=== PATIENT | female | born 1965 | race Caucasian/White ===

== ENCOUNTER 2019-10-28 13:13 | Inpatient (IN) | payer BC ==
[~2019-10-28] VITALS: Ht 167.6 cm; Wt 77.0 kg
[2019-10-28 13:26] VITALS: Ht 167.6 cm; Wt 77.0 kg
--- NOTE | 2019-10-28 14:50 | NUR ---
DR RODRIGUEZ BEDSIDE MSE
--- NOTE | 2019-10-28 15:14 | NUR ---
MEDICATED PER MD ORDERS
[2019-10-28 15:23] LABS: PLATELET COUNT 187 x10^3mcL (130-400); RED CELL DISTRIBUTION WIDTH 12.9 % (11.5-14.5)
[2019-10-28 15:33] LABS: CALCIUM 9.2 mg/dL (8.5-10.1); CARBON DIOXIDE 25.9 mmol/L (21-32); CHLORIDE SERUM 101 mmol/L (98-107); CREATININE SERUM 0.9 mg/dL (0.6-1.0); GFR1 > 60 mL/min; GLUCOSE SERUM 109 mg/dL (74-106); POTASSIUM SERUM 3.9 mmol/L (3.5-5.1); SODIUM SERUM 137 mmol/L (136-145)
[2019-10-28 15:38] LABS: ALBUMIN 3.8 g/dL (3.4-5.0); ALKALINE PHOSPHATASE 173 U/L (46-116); ALT/SGPT 161 U/L (14-59); AST/SGOT 75 U/L (15-37); BILIRUBIN TOTAL 0.7 mg/dL (0.20-1.00); LIPASE 114 IU/L (73-393); TOTAL PROTEIN, SERUM 7.6 g/dL (6.4-8.2)
[2019-10-28 16:00] LABS: BAND NEUTROPHIL 1 % (0-10)
[2019-10-28 16:01] LABS: MONOCYTE 7 % (0-7); SEGMENTED NEUTROPHILS 82 % (37-75)
[2019-10-28 16:05] LABS: rbc morphology (normal/abnorm) NORMAL (NORMAL)
--- NOTE | 2019-10-28 16:05 | NUR ---
MEDICATED PER MD ORDERS- SEE EMR
[2019-10-28 16:35] LABS: UA SPECIFIC GRAVITY >=1.030 (1.005-1.035); microscopic required? YES; urine erythrocyte NEGATIVE (NEGATIVE)
--- NOTE | 2019-10-28 17:30 | NUR ---
PATIENT PROVIDES 8 OZ OF APPLE JUICE PER PO CHALLENGE ORDERS. PT TOLERATED WELL BUT STILL C/O NAUSEA. WILL CONTINUE TO MONITOR.
--- NOTE | 2019-10-28 17:31 | NUR ---
PATIENT TAKEN TO CT- WILL CONTINUE TO MONITOR UPON RETURN.
--- NOTE | 2019-10-28 17:59 | NUR ---
PATIENT BACK FROM CT. PT PLACED BACK ON IV BOLUS PER MD ORDERS.
--- NOTE | 2019-10-28 19:00 | NUR ---
REPORT RECEIVED FROM PAT DAVIS
--- NOTE | 2019-10-28 19:17 | NUR ---
REPORT PROVIDED TO RYAN GAUTHIER FOR CONTINUED CARE OF PATIENT
[2019-10-28 20:13] LABS: CHOLESTEROL/HDL RATIO 4.5
[2019-10-28 20:20] LABS: T3 TOTAL 0.6 ng/mL
[2019-10-28 20:22] LABS: FREE T4 1.07 ng/dL (0.76-1.46); FREE THYROXINE INDEX 3.4 ug/dL (1.4-4.5); T4(THYROXINE) 9.6 ug/dL (4.7-13.3)
--- NOTE | 2019-10-28 21:20 | NUR ---
PT. LAYING IN BED, AAOX54, NO ACUTE DISTRESS NOTED, CALL LIGHT WITHIN REACH, REPOSITIONED FOR COMFORT, 0/10 PAIN, WILL CONTINUE TO MONITOR, M/S HOLD
--- NOTE | 2019-10-28 21:21 | NUR ---
PT. SITTING UP IN BED, AAOX4, NO ACUTE DISTRESS NOTED, REPOSITIONED FOR COMFORT, CALL [facility], 02/06 PAIN HEADACHE, ACHEY, OFFERED PRN TYENOL, PT AGREED, WILL MEDICATED PER ORDER, SAFETY PRECAUTIONS IN PLACE, PENDING BED ASSIGNMENT,
--- NOTE | 2019-10-28 21:39 | NUR ---
PT. AMBULATED TO THE RESTROOM WITH STEADY GAIT, DENIES DIZZINESS
--- NOTE | 2019-10-28 21:39 | NUR ---
MEDIATD PER PRN MD ORDER, PT. TOLERATED WELL, SEE EMAR
--- NOTE | 2019-10-28 23:07 | NUR ---
STARTED FLUIDS NC @ 100ML/HR PER ORDER, PT. STATED SHE WAS FEELING NAUSEATED, ZOFRAN 4 MG IVP ADMINISTERED PER PRN ORDER, PT. TOLERATED WELL, SEE EAMR
--- NOTE | 2019-10-28 23:38 | NUR ---
REPORTED GIVENT TO AJAY DAVIS
--- NOTE | 2019-10-29 00:44 | NUR ---
SEEN PATIENT AT THIS TIME,IV ALARMING LAC,FLUSHING IT WITH RESISTANCE.JACKIE MADE AWARE IT IS NOT GOOD.
[2019-10-29 00:47] VITALS: BP 106/67
--- NOTE | 2019-10-29 00:49 | NUR ---
IV REMOVED.SAYS IT IS BURNING A LOT,JACKIE WILL PUT A NEW ONE.
--- NOTE | 2019-10-29 01:01 | NUR ---
RECEIVED PT FROM ER, PT ADMIT GASTROPARESIS, INTRACTABLE VOMITTING, NAUSEA PT IS A/O X4, VERBAL RESPONSIVE. LUNG SOUND CLEAR BILATERAL, NO COUGH, NO SOB. PT DENY ANY CHEST PAIN OR DISCOMFORT. BOWEL SOUND PRESENT ALL 4 QUADRANTS, DENY ANY N/V AT THIS MOMENT, PEDAL PULSE PRESENT BOTH FEET, NO EDEMA, IV AT LEFT AC, NO LEAKING, NO INFILTRATION. ALL ADLS ASSIST ALL NEED MET, CALL LIGHT IN REACH, WILL CONTINUE TO MONITOR.
--- NOTE | 2019-10-29 04:55 | NUR ---
PATIENT WAS SOUND ASLEEP SINCE I GIVE RESTRORIL,WAS CALLING NOW,SAYS SHE WOKE UP WITH DIARRHEA,UP IN RESTROOM,CLEANED UP SELF.AMBULATORY,STEADY ON HER FEET.DR IS AWARE THAT SHE HAS DIARRHEA FROM HOME,BUT THIS IS THE FIRST TIME SINCE ADMIT.DR MONTGOMERY MADE AWARE.IVF INFUSING WELL,RESUMED AFTER CLEANING HERSELF.
--- NOTE | 2019-10-29 05:06 | NUR ---
I AND O MEASURED.IVF INFUSING.WILL ENDORSE TO NEXT SHIFT.
[2019-10-29 05:33] VITALS: BP 112/58
--- NOTE | 2019-10-29 07:05 | NUR ---
RECEIVED PT FROM DUAL HOSE CEMENTER NURSE. PT RESTING IN BED, RESP E/U ON RA. PT DENIES NAUSEA OR ABD PAIN AT THIS TIME. ULTRASOUND COMPLETED AT BEDSIDE AT THIS TIME. IV TO RFA W/ NO SIGNS OF INFILTRATION, IVF INFUSING WELL. BED IN LOWEST POSITION AND CALL LIGHT WITHIN REACH. WILL CONTINUE TO MONITOR.
[2019-10-29 08:27] LABS: BASOPHIL % 0.5 % (0-2); PLATELET COUNT 177 x10^3mcL (130-400); RED CELL DISTRIBUTION WIDTH 13.5 % (11.5-14.5)
[2019-10-29 08:43] VITALS: BP 136/85
[2019-10-29 09:30] LABS: CALCIUM 8.4 mg/dL (8.5-10.1); CARBON DIOXIDE 26.5 mmol/L (21-32); CHLORIDE SERUM 106 mmol/L (98-107); CREATININE SERUM 0.8 mg/dL (0.6-1.0); GFR1 > 60 mL/min; GLUCOSE SERUM 93 mg/dL (74-106); MAGNESIUM 1.9 mg/dL (1.8-2.4); PHOSPHOROUS 2.7 mg/dL (2.5-4.9); POTASSIUM SERUM 3.7 mmol/L (3.5-5.1); SODIUM SERUM 140 mmol/L (136-145)
--- NOTE | 2019-10-29 12:21 | NUR ---
PT RESTING IN BED, AOX4, RESP E/U ON RA. C/O OF MILD HEADACHE BUT TOLERABLE. DENIES ABD PAIN OR NAUSEA. BED IN LOWEST POSITION AND CALL LIGHT WITHIN REACH. WILL CONTINUE TO MONITOR.
[2019-10-29 12:28] VITALS: BP 138/71
[2019-10-29 16:44] VITALS: BP 116/73
--- NOTE | 2019-10-29 18:50 | NUR ---
PT RESTING IN BED, AOX4, RESP E/U ON RA. DENIES HEADACHE, NAUSEA OR ABD PAIN AT THIS TIME. NO ACUTE DISTRESS NOTED. IV TO RFA W/ NO SIGNS OF INFITLRATION, IVF INFUSING WELL. BED IN LOWEST POSITION AND CALL LIGHT WITHIN REACH. WILL ENDORSE TO ONCOMING NURSE.
--- NOTE | 2019-10-29 19:45 | NUR ---
SHIFT REASSESSMENT DONE.PATIENT ALERT AND ORIENTED.MAKE NEEDS KNOWN TO STAFF.REPORT OF LOOSE STOOL,ON FLAGYL.BREATHING EASY.NS AT 100 CC/ HOUR.MEDSURG PATIENT.SKIN INTACT.SCD IN PLACE.CALL LIGHT IN REACH.
[2019-10-29 20:49] VITALS: BP 109/70
--- NOTE | 2019-10-29 21:26 | NUR ---
WAS ASKING FOR IMMODIUM,DR MONTGOMERY SAYS NO.FLAGYL WAS ORDERED.IVF NS AT 100 CC/HOUR.
--- NOTE | 2019-10-29 23:07 | NUR ---
PATIENT GIVEN SLEEPING PILL.ALSO ATB SCHEDULED FOR MIDNIGHT.QUIET ENVIRONMENT MAINTAINED.
--- NOTE | 2019-10-30 04:18 | NUR ---
SLEEPING COFORTBLY.IVF INFUSING.CALL LIGHT IN REACH.
--- NOTE | 2019-10-30 04:59 | NUR ---
PATIENT SOUND ASLEEP.
[2019-10-30 05:14] VITALS: BP 115/67
--- NOTE | 2019-10-30 06:13 | NUR ---
I AND O MEASURED,IVF NS AT 100 CC/ HOUR.WILL ENDORSE TO NEXT SHIFT.
[2019-10-30 06:33] LABS: BASOPHIL % 0.7 % (0-2); PLATELET COUNT 181 x10^3mcL (130-400); RED CELL DISTRIBUTION WIDTH 13.5 % (11.5-14.5)
[2019-10-30 07:22] LABS: CALCIUM 8.5 mg/dL (8.5-10.1); CHLORIDE SERUM 108 mmol/L (98-107); CREATININE SERUM 0.7 mg/dL (0.6-1.0); GFR1 > 60 mL/min; GLUCOSE SERUM 97 mg/dL (74-106); MAGNESIUM 1.8 mg/dL (1.8-2.4); PHOSPHOROUS 3.5 mg/dL (2.5-4.9); POTASSIUM SERUM 3.6 mmol/L (3.5-5.1); SODIUM SERUM 142 mmol/L (136-145)
--- NOTE | 2019-10-30 07:30 | NUR ---
PT ENDORSE TO ME THIS MORNING, LAYING IN BED RESTING, AA/O X4, BREATHING EVEN AND UNLABORED ON RA, NO ACUTE RESP DISTRESS OR SOB NOTED. MEDSURG, DENIES ANY CP OR PRESSURE. DENIES ANY ABD PAIN OR DISCOMFORT AT THIS TIME, LAST LOOSE STOOL 10/29. VOIDING FREELY. AMB. IV OTHE RFA INTACT AND PATENT INFUSING AT 10 ML/HR. NO REDNESS OR SWELLING NOTED. CALL LIGHT IN REACH. BED IN LOW POSITION. WILL CONTINUE TO MONITOR.
[2019-10-30 09:00] VITALS: BP 119/77
--- NOTE | 2019-10-30 09:32 | NUR ---
PT REFUSE TO HAVE COLACE, STATED HAS HAD X1 LOOSE STOOL THIS AM.
[2019-10-30] MEDS ORDERED: ZOF4 PO ×2 (10:34→14:19)
[2019-10-30 12:56] VITALS: BP 123/79
--- NOTE | 2019-10-30 14:24 | NUR ---
EXPLAINED DISCHARGE INSTRUCTIONS, NEW AND CONTINUED MEDS AND FOLLOW UP APT PT HAS ON 11/12 AT 0945 WITH PRIMARY DOC. PT AGREED AND SIGNED ALL DOCUMENTS. REMOVED IV TOTHE RFA CATHETER TIP INTACT. WAITING FOR HER RIDE. WILL CONTINUE TO MONITOR.
--- NOTE | 2019-10-30 15:00 | NUR ---
KATELYN WALL WALKED PT DOWN TO FRONT OF HOSPITAL, PT IS CLEAR ON ALL INSTRUCTIONS AND FOLLOW UP APPT. PT IS BREATHING EVEN AND UNLABORED ON RA NO ACUTE RESP DISTRESS OR SOB NOTED. PT DISCHARGED HOME, WILL BE DRIVING HER HOME.
== END 2019-10-30 15:11 | disposition home or self-care (01) | DRG 73 ==
LOC: ED 13:13 → MU 19:21
PROVIDERS: Emergency Medicine; ADMIT General Practice
DX: E11.43 Type 2 diabetes mellitus with diabetic autonomic (poly)neuropathy (principal); N17.0 Acute kidney failure with tubular necrosis; E03.9 Hypothyroidism, unspecified; F41.9 Anxiety disorder, unspecified; K31.84 Gastroparesis; E86.0 Dehydration; K21.9 Gastro-esophageal reflux disease without esophagitis; K52.9 Noninfective gastroenteritis and colitis, unspecified; Z88.8 Allergy status to other drugs, medicaments and biological substances; Z90.49 Acquired absence of other specified parts of digestive tract; Z90.710 Acquired absence of both cervix and uterus; Z79.84 Long term (current) use of oral hypoglycemic drugs
CPT/HCPCS: 82962; 83880; 84439; 87046; 87046-59; 87804; G0378; J2270; J2405; J2765; J3490; J7030; Q0092; Q9967